=== PATIENT | male | born 1995 | race African-American/Black ===

== ENCOUNTER 2024-03-04 23:42 | Emergency (ER) | payer SELFPAY ==
[2024-03-05] MEDS ORDERED: Naproxen 500 MG TAB ONE (02:51)
[2024-03-05] MEDS ORDERED: Amoxicillin/Potassium Clav 875 MG TAB ONE (02:51)
[2024-03-05] MEDS ORDERED: AMOXicillin 250 MG CAP PO SCH (03:15)
== END 2024-03-05 03:25 | disposition home or self-care (01) ==
LOC: CSHERS 23:42
DX: K04.7 Periapical abscess without sinus (principal)
CPT/HCPCS: 99282